=== PATIENT | female | born 1975 | race Caucasian/White ===

== ENCOUNTER 2018-04-29 03:32 | Emergency (ER) | payer BC, OTHER ==
[~2018-04-29] VITALS: Ht 160 cm; Wt 73.0 kg
[~2018-04-29 03:32] MED LIST: MAGN400T PO; PROM25SU8 PO; VITA100T15 PO; VITA400C28 PO; ZYRT10TA12 PO
[2018-04-29 03:38] VITALS: BP 124/61; PULSE 101; RESP 18; TEMP 98.5; O2SAT 97
[2018-04-29] MEDS ORDERED: SODIUM CHLOR 0.9% 1000 ML INJ 1,000 ML IV ONE ×2 (04:05→05:30)
--- NOTE | 2018-04-29 04:09 | PD ---
HPI Chief Complaint: Diabetic Time Seen by Provider: 04:05 Travel History International Travel<30 days: No Contact w/Intl Traveler<30days: No Traveled to known affect area: No History of Present Illness HPI 43-year-old female presents to the emergency patient in care of her spouse for evaluation of nausea vomiting and diarrhea. Symptoms began last evening. Patient states she was participating in a graduation function and there was a buffet. Patient ate some of the foods their chicken and barbecue. Since found him p.m. she has had multiple episodes of dry heaves and vomiting some abdominal discomfort and 2 episodes of diarrhea. No reported fever chills hematemesis coffee-ground emesis melena hematochezia. Patient's blood sugars have been monitored and remained approximately 199. Unclear if foodborne illness but otherwise no dietary indiscretion well water ingestion or foreign travel. Spouse is not ill. PFSH Past Medical History Narrative Medical Diabetes breast reduction insulin pump; no tobacco use; nursing notes reviewed Diabetes: Yes (TYPE 1) Past Surgical History Appendectomy: Yes Body Medical Devices: INSULIN PUMP Other Surgery: Yes (BREAST REDUCTION) Social History Alcohol Use: No Tobacco Use: No Substance Use: No Allergies-Medications (Allergen,Severity, Reaction): Coded Allergies: acetaminophen (Unverified Allergy, Severe, ABNORMAL KIDNEY FUNCTIONS, 07/10) penicillin G (Unverified Allergy, Severe, TONGUE SWELLS, 07/10/17) codeine (Unverified Adverse Reaction, Intermediate, NAUSEA AND VOMITING, ) Reported Meds & Prescriptions Reported Meds & Active Scripts Active Zofran Odt (Ondansetron Odt) 4 Mg Tab 4 Mg SL Q6HR PRN Promethazine Hcl (Promethazine HCl) 25 Mg Tab 1 Tab PO Q4 HOURS PRN FOR NAUSEA AND VOMITING Reported Vitamin B12 (Cyanocobalamin) 100 Mcg Tab 0 PO UNKNOWN DOSE Vitamin D (Cholecalciferol) 400 Unit Tab 1,000 Unit PO BID Mag-Ox 400 (Magnesium Oxide) 400 Mg Tab 400 Mg PO BID Zyrtec (Cetirizine HCl) 10 Mg Tab 10 Mg PO DAILY Review of Systems Except as stated in HPI: all other systems reviewed are Neg General / Constitutional: No: Fever, Chills HENT: No: Congestion Cardiovascular: No: Chest Pain or Discomfort Respiratory: No: Shortness of Breath Gastrointestinal: Positive: Nausea, Vomiting, Diarrhea (x2), Abdominal Pain ( cramping) Genitourinary: No: Dysuria, Decreased Urinary Output Musculoskeletal: No: Myalgias, Arthralgias Skin: No Rash Neurologic: No: Weakness, Dizziness Psychiatric: No: Anxiety, Depression Endocrine: No: Heat Intolerance, Cold Intolerance, Polyuria, Polydipsia Hematologic/Lymphatic: No: Easy Bruising Physical Exam Narrative GENERAL: Well-developed well-nourished female no acute distress no respiratory distress SKIN: Warm and dry. HEAD: Normocephalic. EYES: No scleral icterus. No injection or drainage. NECK: Supple, trachea midline. No JVD or lymphadenopathy. CARDIOVASCULAR: Regular rate and rhythm without murmurs, gallops, or rubs. RESPIRATORY: Breath sounds equal bilaterally. No accessory muscle use. GASTROINTESTINAL: Abdomen soft, non-tender, nondistended. Soft nontender to direct palpation no guarding or rebound no point tenderness. MUSCULOSKELETAL: No cyanosis, or edema. BACK: Nontender without obvious deformity. No CVA tenderness. Data Data Last Documented VS Vital Signs Date Time Temp Pulse Resp B/P (MAP) Pulse Ox O2 Delivery O2 Flow Rate FiO2 04/29/18 04:59 95 16 101/56 (71) 97 Room Air 04/29/18 03:38 98.5 Orders Orders Complete Blood Count With Diff (04/29/18 04:05) Comprehensive Metabolic Panel (04/29/18 04:05) Urinalysis - C+S If Indicated (04/29/18 04:05) Lipase (04/29/18 04:05) Iv Access Insert/Monitor (04/29/18 04:05) Ecg Monitoring (04/29/18 04:05) Oximetry (04/29/18 04:05) Sodium Chlor 0.9% 1000 Ml Inj (Ns 1000 M (04/29/18 04:05) Sodium Chloride 0.9% Flush (Ns Flush) (04/29/18 04:15) Ed Urine Pregnancytest Poc (04/29/18 04:05) Metoclopramide Inj (Reglan Inj) (04/29/18 04:15) Ondansetron Odt (Zofran Odt) (04/29/18 05:30) Sodium Chlor 0.9% 1000 Ml Inj (Ns 1000 M (04/29/18 05:30) Ed Discharge Order (04/29/18 05:37) Labs Laboratory Tests Test 04/29/18 04:10 White Blood Count 6.0 TH/MM3 Red Blood Count 4.52 MIL/MM3 Hemoglobin 13.3 GM/DL Hematocrit 39.5 % Mean Corpuscular Volume 87.3 FL Mean Corpuscular Hemoglobin 29.3 PG Mean Corpuscular Hemoglobin Concent 33.6 % Red Cell Distribution Width 12.5 % Platelet Count 168 TH/MM3 Mean Platelet Volume 9.5 FL Neutrophils (%) (Auto) 64.7 % Lymphocytes (%) (Auto) 24.8 % Monocytes (%) (Auto) 6.2 % Eosinophils (%) (Auto) 3.9 % Basophils (%) (Auto) 0.4 % Neutrophils # (Auto) 3.9 TH/MM3 Lymphocytes # (Auto) 1.5 TH/MM3 Monocytes # (Auto) 0.4 TH/MM3 Eosinophils # (Auto) 0.2 TH/MM3 Basophils # (Auto) 0.0 TH/MM3 CBC Comment DIFF FINAL Differential Comment Urine Color YELLOW Urine Turbidity CLEAR Urine pH 5.5 Urine Specific [place] 1.020 Urine Protein NEG mg/dL Urine Glucose (UA) NEG mg/dL Urine Ketones 15 mg/dL Urine Occult Blood NEG Urine Nitrite NEG Urine Bilirubin NEG Urine Urobilinogen 0.2 MG/DL Urine Leukocyte Esterase NEG Urine RBC 0-2 /hpf Urine WBC 0-2 /hpf Urine Squamous Epithelial Cells 0-5 /hpf Urine Bacteria NONE /hpf Microscopic Urinalysis Comment CULT NOT INDICATED Blood Urea Nitrogen 18 MG/DL Creatinine 0.76 MG/DL Random Glucose 206 MG/DL Total Protein 6.9 GM/DL Albumin 3.6 GM/DL Calcium Level 8.4 MG/DL Alkaline Phosphatase 62 U/L Aspartate Amino Transf (AST/SGOT) 13 U/L Alanine Aminotransferase (ALT/SGPT) 22 U/L Total Bilirubin 0.3 MG/DL Sodium Level 136 MEQ/L Potassium Level 3.8 MEQ/L Chloride Level 104 MEQ/L Carbon Dioxide Level 24.2 MEQ/L Anion Gap 8 MEQ/L Estimat Glomerular Filtration Rate 82 ML/MIN Lipase 115 U/L MDM Medical Decision Making Medical Screen Exam Complete: Yes Emergency Medical Condition: Yes Medical Record Reviewed: Yes Interpretation(s) [id number] hCG: NegativeCBC & BMP Diagram 6/4/18 04:10 Total Protein 6.9, Albumin 3.6, Calcium Level 8.4 L, Alkaline Phosphatase 62, Aspartate Amino Transf (AST/SGOT) 13 L, Alanine Aminotransferase (ALT/SGPT) 22, Total Bilirubin 0.3 Vital Signs Date Time Temp Pulse Resp B/P (MAP) Pulse Ox O2 Delivery O2 Flow Rate FiO2 04/29/18 04:29 103 16 107/74 (85) 98 Room Air 04/29/18 04:27 16 98 Room Air 04/29/18 04:19 Room Air 04/29/18 03:38 98.5 101 18 124/61 (82) 97 UA: Normal except for scant ketones no glucosuria no culture indicated Differential Diagnosis Vomiting, dehydration, DKA, gastroenteritis, foodborne illness, Narrative Course IV access obtained specimens collected and sent for resulting [id number] ordered; patient ordered to receive 1 L normal saline and Reglan 10. Declines Reglan at this time CBC is automated differential values noted within normal range Metabolic panel is remarkable for blood sugar of 203 however bicarb and anion gap are in normal range Urinalysis is normal except for scant ketones but no glucosuria and cultures not indicated Patient given Reglan 10 mg IV and reports responds well to oral Zofran but forgot her prescription at home therefore will provide patient with prescription for Zofran Patient given trial of oral hydration with some residual nausea will give additional liter of normal saline and Zofran ODT 4 mg Patient stable for outpatient management; suspect patient may have had possible foodborne trigger 2 episodes of vomiting does not appear to have actual infectious process at this time however will be encouraged to monitor temperature and return to emergency department for any concerns or change in condition abdomen on exam soft nontender no guarding or rebound no evidence for acute abdomen and imaging does not appear indicated at this time. Diagnosis Primary Impression: Vomiting Qualified Codes: R11.2 - Nausea with vomiting, unspecified Additional Impression: History of type 1 diabetes mellitus Referrals: Primary Care Physician call for appointment Patient Instructions: General Instructions Additional Instructions: Recommend increase fluid hydration Recommend clear liquid diet as tolerated for the next 6-12 hours advance to bland diet and then regular diabetic diet as tolerated Take Zofran as prescribed as needed for nausea and/or vomiting Monitor temperature every 4 hours with thermometry take as needed ibuprofen/ Advil/Motrin for fever 100.4F or greater Return to emergency department for any concerns or change in condition Follow-up with your primary care provider Med/Other Pt SpecificInfo: Prescription(s) given Scripts Ondansetron Odt (Zofran Odt) 4 Mg Tab 4 MG SL Q6HR Y for Nausea/Vomiting, #12 TAB 0 Refills Prov: Pretty Workman MD 04/29/18 Disposition: 01 DISCHARGE HOME Condition: Stable Pretty Workman MD Apr 29, 2018 04:09
[2018-04-29] MEDS ORDERED: METOCLOPRAMIDE HCL 10 MG/2 ML VIAL IV PUSH ONE (04:15)
[2018-04-29] MEDS ORDERED: SODIUM CHLORIDE 0.9% FLUSH 10 ML FLUSH IVF PRN (04:15)
[2018-04-29 04:23] LABS: BILIRUBIN, URINE NEG (NEG); BLOOD, URINE NEG (NEG); GLUCOSE,URINE NEG (NEG); KETONE, URINE 15 mg/dL (NEG); NITRITE,URINE NEG (NEG); PH, URINE 5.5 (5.0-8.5); URINE COLOR YELLOW (YELLW/STRAW); URINE LEUKOCYTE ESTERASE NEG (NEG)
[2018-04-29 04:25] LABS: AUTOMATED NEUTROPHIL # 3.9 TH/MM3 (1.8-7.7); BASOPHIL % 0.4 % (0.0-2.0); EOSINOPHIL # 0.2 TH/MM3 (0-0.4); EOSINOPHIL % 3.9 % (0.0-4.0); HEMATOCRIT 39.5 % (35.0-46.0); HEMOGLOBIN 13.3 GM/DL (11.6-15.3); LYMPH % 24.8 % (9.0-44.0); LYMPHOCYTE # 1.5 TH/MM3 (1.0-4.8); MEAN CELL VOLUME 87.3 FL (80.0-100.0); MEAN CORPUSCULAR HEMOGLOBIN 29.3 PG (27.0-34.0); MEAN CORPUSCULAR HGB CONC 33.6 % (32.0-36.0); MEAN PLATELET VOLUME 9.5 FL (7.0-11.0); MONO % 6.2 % (0.0-8.0); MONOCYTE # 0.4 TH/MM3 (0-0.9); NEUT % 64.7 % (16.0-70.0); PLATELET COUNT 168 TH/MM3 (150-450); RED BLOOD COUNT 4.52 MIL/MM3 (4.00-5.30); RED CELL DISTRIBUTION WIDTH 12.5 % (11.6-17.2)
[2018-04-29 04:27] VITALS: RESP 16; O2SAT 98
[2018-04-29 04:27] LABS: RBC, URINE 0-2 /hpf (0-3); SQUAMOUS EPITHELIAL CELL URINE 0-5 /hpf (0-5); WBC, URINE 0-2 /hpf (0-5)
[2018-04-29 04:29] VITALS: BP 107/74; PULSE 103; RESP 16; O2SAT 98
[2018-04-29 04:32] LABS: CHLORIDE 104 MEQ/L (98-107); SODIUM (NA) 136 MEQ/L (136-145)
[2018-04-29 04:35] LABS: CALCIUM 8.4 MG/DL (8.5-10.1)
[2018-04-29 04:36] LABS: ALBUMIN 3.6 GM/DL (3.4-5.0); BICARBONATE 24.2 MEQ/L (21.0-32.0); BLOOD UREA NITROGEN 18 MG/DL (7-18); GLUCOSE,RANDOM 206 MG/DL (74-106)
[2018-04-29 04:38] LABS: ALT (GPT) 22 U/L (10-53)
[2018-04-29 04:39] LABS: AST (GOT) 13 U/L (15-37); CREATININE 0.76 MG/DL (0.50-1.00); GLOMERULAR FILTRATION RATE 82 ML/MIN (>89)
[2018-04-29 04:40] LABS: TOTAL BILIRUBIN ADULT 0.3 MG/DL (0.2-1.0); TOTAL PROTEIN 6.9 GM/DL (6.4-8.2)
[2018-04-29 04:41] LABS: ALKALINE PHOSPHATASE 62 U/L (45-117)
[2018-04-29] MEDS ORDERED: ZOFR4TAB3 SL (04:58)
[2018-04-29 04:59] VITALS: BP 101/56; PULSE 95; RESP 16; O2SAT 97
[2018-04-29] MEDS ORDERED: ONDANSETRON ODT 4 MG TAB PO ONE (05:30)
[2018-04-29 06:20] VITALS: BP 107/58
== END 2018-04-29 06:22 | disposition home or self-care (01) ==
LOC: PHED 03:32
DX: R11.2 Nausea with vomiting, unspecified (principal); E10.9 Type 1 diabetes mellitus without complications; R19.7 Diarrhea, unspecified
CPT/HCPCS: 80053; 81001; 83690; 84703; 85025; 96361; 96374; 99284; J2765; J7030